=== PATIENT | male | born 1985 | race Caucasian/White ===

== ENCOUNTER 2019-11-25 20:50 | Emergency (ER) | payer MEDICAID ==
[~2019-11-25] VITALS: Ht 172.7 cm; Wt 78.1 kg
[2019-11-25] MEDS ORDERED: normal saline 1000ML IV soln IVB ONE (21:15)
[2019-11-25] MEDS ORDERED: ondansetron/PF 4mg/2ml inj IV ONE (21:15)
[2019-11-25] MEDS ORDERED: morphine 10mg/ml inj. IV ONE (21:15)
[2019-11-25] MEDS ORDERED: LORazepam 2 mg/ml vial IV ONE (21:15)
[2019-11-25 21:53] LABS: BASOPHILS % (AUTO) 0.4 % (0-1); EOSINOPHILS # (AUTO) 0.1 X10'3 (0-0.9); EOSINOPHILS % (AUTO) 1.2 % (0-6); HEMATOCRIT 42.9 % (42.0-52.0); HEMOGLOBIN 14.6 g/dl (14.0-17.9); LYMPHOCYTES # (AUTO) 2.9 X10'3 (1.1-4.8); MEAN CORPUSCULAR HEMOGLOBIN 31.4 PG (27.0-31.0); MEAN CORPUSCULAR HGB CONC 33.9 g/dL (33.0-36.5); MEAN CORPUSCULAR VOLUME 92.5 FL (78-98); MEAN PLATELET VOLUME 7.6 FL (7.4-10.4); MONOCYTES # (AUTO) 0.6 X10'3 (0-0.9); NEUTROPHILS % (AUTO) 62.4 % (42-75); PLATELET COUNT 272 X10'3 (140-440); RED BLOOD COUNT 4.64 X10'6 (4.70-6.10); RED CELL DISTRIBUTION WIDTH 12.8 % (11.5-14.5); WHITE BLOOD COUNT 9.7 X10'3 (4.5-11.0)
[2019-11-25 22:08] LABS: ALANINE AMINOTRANSFERASE 33 U/L (12-78); ALBUMIN 4.3 G/DL (3.4-5.0); ALBUMIN/GLOBULIN RATIO 1.4 (1.1-1.5); ALKALINE PHOSPHATASE 62 IU/L (46-116); ANION GAP 9 (8-16); ASPARTATE AMINO TRANSFERASE 16 U/L (10-37); BILIRUBIN,TOTAL 0.3 MG/DL (0.1-1.0); BLOOD UREA NITROGEN 22 MG/DL (7-18); CALCIUM 8.8 MG/DL (8.5-10.1); CHLORIDE 105 MMOL/L (99-107); GLUCOSE 123 MG/DL (70-104); LIPASE 152 U/L (73-393); POTASSIUM 3.7 MMOL/L (3.5-5.1); SODIUM 142 MMOL/L (135-145); TOTAL CARBON DIOXIDE 27.8 MMOL/L (24-32); TOTAL PROTEIN 7.4 G/DL (6.4-8.2); eGFR 87 ML/MIN
[2019-11-25 23:12] LABS: CLARITY,URINE CLEAR (Clear); COLOR,URINE YELLOW (Yellow); GLUCOSE, URINE NEGATIVE (Neg); KETONES,URINE NEGATIVE (Neg); LEUKOCYTE ESTERASE ,URINE NEGATIVE (Neg); NITRITES, URINE NEGATIVE (Neg); OCCULT BLOOD,URINE NEGATIVE (Neg); PH,URINE 5.5 (4.8-8.0); PROTEIN,URINE NEGATIVE (Neg); UROBILINOGEN,URINE 0.2 E.U/dL (0.2-1.0)
[2019-11-25 23:13] VITALS: BP 124/75
[2019-11-25 23:13] LABS: UA COLLECTION TYPE CLN CATCH MIDSTREAM
== END 2019-11-25 23:16 | disposition home or self-care (01) ==
LOC: ER 20:51
DX: R10.30 Lower abdominal pain, unspecified (principal); M54.5 Low back pain; N50.819 Testicular pain, unspecified; G89.29 Other chronic pain
CPT/HCPCS: 36415; 74176; 80053; 81003; 83605; 83690; 84145; 85025; 87040; 96361; 96374; 96375; 99284; J2060; J2270; J2405; J7030

== ENCOUNTER 2019-12-10 07:21 | Emergency (ER) | payer OTHER, MEDICAID ==
[~2019-12-10] VITALS: Ht 172.7 cm; Wt 81.5 kg
[2019-12-10] MEDS ORDERED: diazepam 5mg tablet PO ONE (08:05)
[2019-12-10 08:46] VITALS: BP 110/79
== END 2019-12-10 08:50 | disposition home or self-care (01) ==
LOC: ER 07:22
DX: M54.5 Low back pain (principal); R10.31 Right lower quadrant pain; G89.29 Other chronic pain; M25.562 Pain in left knee; M25.561 Pain in right knee; M25.552 Pain in left hip; M25.551 Pain in right hip; Z56.0 Unemployment, unspecified
CPT/HCPCS: 99283